=== PATIENT | male | born 1945 | race African-American/Black ===

== ENCOUNTER 2021-05-25 10:47 | Inpatient (IN) | payer MEDICARE ==
[2021-05-25 11:59] LABS: #Monocytes 1.2 10x3/uL (0.0-1.1); #Neutrophils 7.1 10x3/uL (1.5-8.4); %Basophils 0.3 % (0.0-2.0); %Monocytes 13.2 % (0.0-10.0); %Neutrophils 78.9 % (40.0-75.0); Hemoglobin 9.3 g/dL (13.5-17.5); Mean Corpuscular HGB CONC 33.7 g/dL (32.0-36.0); Mean Corpuscular Hemoglobin 29.8 pg (27.0-33.0); Mean Corpuscular Volume 88.5 fl (81.2-95.1); Mean Platelet Volume 9.6 fl (7.4-10.4); Platelet Count 225 10x3/uL (150-450); RBC Distribution Width 14.7 % (11.5-14.5); Red Blood Cell (RBC) Count 3.12 10x6/uL (4.32-5.72)
[2021-05-25 12:28] LABS: ALT (SGPT) 509 U/L (8-55); AST (SGOT) 648 U/L (5-34); Albumin 4.1 g/dL (3.4-4.8); Alkaline Phosphatase 143 U/L (40-110); Anion Gap 23 mmol/L (10-20); BUN (Urea Nitrogen) 63 mg/dL (8.4-25.7); Bilirubin, Total 2.1 mg/dL (0.2-1.2); Calc. Creatinine Clearance 0 mL/min (70-130); Calcium 9.1 mg/dL (7.8-10.44); Carbon Dioxide 20 mmol/L (23-31); Chloride 97 mmol/L (98-107); Globulin 2.9 g/dL (2.4-3.5); Glucose 232 mg/dL (83-110); Potassium 4.9 mmol/L (3.5-5.1); Sodium 135 mmol/L (136-145)
[2021-05-25] MEDS ORDERED: Heparin 10,000 UNITS/ 10 ML VIAL SLOW IVP PRN (12:50)
[2021-05-25 12:54] LABS: CKMB 3.2 ng/mL (0-6.6)
[2021-05-25] MEDS ORDERED: Aspirin 81 mg Enteric Coated Tablet PO SCH (14:00)
[2021-05-25 14:41] LABS: Hep B Surf Ag Non-Reactive S/CO (NonReactive)
[2021-05-25 18:23] LABS: Troponin I 1.768 ng/mL (< 0.028)
[2021-05-25 19:28] VITALS: BMI 28.2
[2021-05-25] MEDS ORDERED: ALPRAZolam 0.5 MG TAB PO PRN (19:52)
[2021-05-25] MEDS ORDERED: HYDROcodone/Acetaminophen 10/325 mg Tablet PO PRN (19:52)
[2021-05-25] MEDS ORDERED: Dextrose 5% in Water 1,000 ML IV PRN (19:54)
[2021-05-25] MEDS ORDERED: Dextrose 50% Abboject 50 ML SYRINGE SLOW IVP PRN (19:54)
[2021-05-25] MEDS ORDERED: HumaLOG 300 UNITS/3 ML VIAL SC PRN (19:54)
[2021-05-25 20:54] LABS: SARS-CoV-2 NAA Rapid Test Not Detected (NotDetected)
[2021-05-25] MEDS: NIFEdipine XL 60 MG TAB PO SCH (21:19)
[2021-05-25] MEDS: Heparin 5,000 UNITS/ML VIAL SC SCH (21:19)
[2021-05-25] MEDS: Montelukast Sodium 10 mg Tablet PO SCH (21:19)
[2021-05-26 02:20] LABS: Hep C IgG Ab Non-Reactive (NonReactive); Hep C Index 0.08 S/CO (0-0.79)
[2021-05-26 02:21] LABS: HBSAB Concentration Less than 8.00 mIU/mL; Hep B Surf AB Non-Reactive (NonReactive)
[2021-05-26 03:09] LABS: Hep B Core Total Ab Non-Reactive (NonReactive); Hep B Core Total Index 0.08 S/CO (0-0.79)
[2021-05-26 04:19] LABS: Hemoglobin 9.5 g/dL (13.5-17.5); Mean Corpuscular HGB CONC 33.6 g/dL (32.0-36.0); Mean Corpuscular Hemoglobin 29.5 pg (27.0-33.0); Mean Corpuscular Volume 87.9 fl (81.2-95.1); Mean Platelet Volume 9.9 fl (7.4-10.4); Platelet Count 262 10x3/uL (150-450); RBC Distribution Width 14.5 % (11.5-14.5); Red Blood Cell (RBC) Count 3.22 10x6/uL (4.32-5.72); White Blood Cell (WBC) Count 9.8 10x3/uL (3.5-10.5)
[2021-05-26 04:38] LABS: Anion Gap 17 mmol/L (10-20); BUN (Urea Nitrogen) 52 mg/dL (8.4-25.7); Calc. Creatinine Clearance 10 mL/min (70-130); Calcium 9.5 mg/dL (7.8-10.44); Carbon Dioxide 26 mmol/L (23-31); Chloride 99 mmol/L (98-107); Glucose 156 mg/dL (83-110); Potassium 4.4 mmol/L (3.5-5.1); Sodium 138 mmol/L (136-145)
[2021-05-26 05:24] LABS: MDiff Complete? YES
[2021-05-26 05:27] LABS: Band 2 % (5-11); Eosinophils 2 % (0-10); Lymphocytes 11 % (21-51); Monocytes 16 % (0-10); Neutrophil 65 % (42-75); Reactive Lymphocytes 3 % (0-10)
[2021-05-26 05:28] LABS: Platelet Morphology Comment Appears Adequate; RBC Morphology Normal
[2021-05-26] MEDS: Aspirin 81 mg Enteric Coated Tablet PO SCH (08:25)
[2021-05-26] MEDS: Alogliptin 6.25 MG TAB PO SCH (08:25)
[2021-05-26] MEDS: glipiZIDE 10 MG TAB PO SCH ×2 (08:25→18:17)
[2021-05-26] MEDS: Allopurinol 300 MG TAB PO SCH (09:16)
[2021-05-26] MEDS: Furosemide 20 MG TAB PO SCH (17:37)
[2021-05-26] MEDS: Atenolol 25 MG TAB PO SCH ×2 (17:37→18:15)
[2021-05-26] MEDS: Heparin 5,000 UNITS/ML VIAL SC SCH ×2 (17:38→20:31)
[2021-05-26] MEDS: Lisinopril 5 MG TAB PO SCH ×2 (17:39→18:16)
[2021-05-26] MEDS: NIFEdipine XL 60 MG TAB PO SCH (17:51)
[2021-05-26] MEDS: Atorvastatin Calcium 40 MG TAB PO SCH (18:16)
[2021-05-26] MEDS: Montelukast Sodium 10 mg Tablet PO SCH (20:27)
[2021-05-27 04:16] LABS: #Basophils 0.1 10x3/uL (0.0-0.2); #Eosinphils 0.2 10x3/uL (0.0-0.5); #Monocytes 1.2 10x3/uL (0.0-1.1); #Neutrophils 5.1 10x3/uL (1.5-8.4); %Basophils 1.3 % (0.0-2.0); %Eosinophils 2.6 % (0.0-6.0); %Lymphocytes 17.3 % (18.0-47.0); %Monocytes 14.5 % (0.0-10.0); Hemoglobin 9.8 g/dL (13.5-17.5); Mean Corpuscular HGB CONC 33.4 g/dL (32.0-36.0); Mean Corpuscular Hemoglobin 29.3 pg (27.0-33.0); Mean Corpuscular Volume 87.5 fl (81.2-95.1); Mean Platelet Volume 9.8 fl (7.4-10.4); Platelet Count 311 10x3/uL (150-450); RBC Distribution Width 14.2 % (11.5-14.5); Red Blood Cell (RBC) Count 3.35 10x6/uL (4.32-5.72); White Blood Cell (WBC) Count 7.9 10x3/uL (3.5-10.5)
[2021-05-27 04:30] LABS: Anion Gap 16 mmol/L (10-20); BUN (Urea Nitrogen) 44 mg/dL (8.4-25.7); Calc. Creatinine Clearance 12 mL/min (70-130); Carbon Dioxide 28 mmol/L (23-31); Chloride 94 mmol/L (98-107); Glucose 128 mg/dL (83-110); Potassium 4.1 mmol/L (3.5-5.1); Sodium 134 mmol/L (136-145)
[2021-05-27] MEDS: Atorvastatin Calcium 40 MG TAB PO SCH (08:43)
[2021-05-27] MEDS: Allopurinol 300 MG TAB PO SCH (08:43)
[2021-05-27] MEDS: Aspirin 81 mg Enteric Coated Tablet PO SCH (08:43)
[2021-05-27] MEDS: Alogliptin 6.25 MG TAB PO SCH (08:43)
[2021-05-27] MEDS: Furosemide 20 MG TAB PO SCH (08:43)
[2021-05-27] MEDS: Lisinopril 5 MG TAB PO SCH (08:43)
[2021-05-27] MEDS: Atenolol 25 MG TAB PO SCH (08:44)
[2021-05-27] MEDS: Heparin 5,000 UNITS/ML VIAL SC SCH (08:44)
[2021-05-27 10:00] LABS: Troponin I 1.277 ng/mL (< 0.028)
[2021-05-27] MEDS: glipiZIDE 10 MG TAB PO SCH (11:04)
[2021-05-27 11:45] VITALS: TEMP 98.4
[2021-05-27 12:53] VITALS: BP 139/75
== END 2021-05-27 14:15 | disposition home or self-care (01) | DRG 280 ==
LOC: CSHERS 10:47 → CSHTELE 18:57
PROVIDERS: ADMIT Internal Medicine; ATTEND Internal Medicine
PROC: 5A1D70Z Performance of Urinary Filtration, Intermittent, Less than 6 Hours Per Day (ICD-10-PCS; principal; 2021-05-25)
DX: T82.590A Other mechanical complication of surgically created arteriovenous fistula, initial encounter (principal); N18.6 End stage renal disease; I21.A1 Myocardial infarction type 2; I13.2 Hypertensive heart and chronic kidney disease with heart failure and with stage 5 chronic kidney disease, or end stage renal disease; I50.32 Chronic diastolic (congestive) heart failure; D63.1 Anemia in chronic kidney disease; Z20.822 Contact with and (suspected) exposure to COVID-19; Y83.8 Other surgical procedures as the cause of abnormal reaction of the patient, or of later complication, without mention of misadventure at the time of the procedure; I95.3 Hypotension of hemodialysis; R79.89 Other specified abnormal findings of blood chemistry; E11.22 Type 2 diabetes mellitus with diabetic chronic kidney disease; E78.5 Hyperlipidemia, unspecified; I25.10 Atherosclerotic heart disease of native coronary artery without angina pectoris; E78.00 Pure hypercholesterolemia, unspecified; Z99.2 Dependence on renal dialysis; Z91.15 Patient's noncompliance with renal dialysis; Z79.82 Long term (current) use of aspirin; Z79.899 Other long term (current) drug therapy; Z79.891 Long term (current) use of opiate analgesic; Z88.8 Allergy status to other drugs, medicaments and biological substances; Z95.1 Presence of aortocoronary bypass graft; Z79.84 Long term (current) use of oral hypoglycemic drugs
CPT/HCPCS: 36415; 36416; 71045; 80048; 80053; 82553; 84484; 85025; 86704; 86706; 86803; 87340; 90935; 93005; 93306; 94760; G0257; J1644; U0002

== ENCOUNTER 2022-04-03 22:55 | Observation (INO) | payer MEDICARE, OTHER ==
[2022-04-03] MEDS ORDERED: Nitroglycerin 2% Ointment 1 INCH/1 GM Packet ONE (23:50)
[2022-04-03] MEDS ORDERED: Aspirin Chewable 81 MG TAB ONE ×2 (23:50→23:55)
[2022-04-04 00:17] LABS: #Basophils 0.1 10x3/uL (0.0-0.2); #Eosinphils 0.2 10x3/uL (0.0-0.5); #Monocytes 0.8 10x3/uL (0.0-1.1); #Neutrophils 5.1 10x3/uL (1.5-8.4); %Basophils 0.8 % (0.0-2.0); %Eosinophils 2.4 % (0.0-6.0); %Lymphocytes 17.9 % (18.0-47.0); %Monocytes 10.2 % (0.0-10.0); %Neutrophils 68.3 % (40.0-75.0); Hemoglobin 10.4 g/dL (13.5-17.5); Mean Corpuscular HGB CONC 34.7 g/dL (32.0-36.0); Mean Corpuscular Hemoglobin 31.2 pg (27.0-33.0); Mean Corpuscular Volume 90.1 fl (81.2-95.1); Mean Platelet Volume 8.9 fl (7.4-10.4); Platelet Count 249 10x3/uL (150-450); RBC Distribution Width 13.5 % (11.5-14.5); Red Blood Cell (RBC) Count 3.33 10x6/uL (4.32-5.72); White Blood Cell (WBC) Count 7.5 10x3/uL (3.5-10.5)
[2022-04-04 00:37] LABS: ALT (SGPT) 13 U/L (8-55); AST (SGOT) 13 U/L (5-34); Albumin 4.2 g/dL (3.4-4.8); Alkaline Phosphatase 90 U/L (40-110); Anion Gap 26 mmol/L (10-20); BUN (Urea Nitrogen) 78 mg/dL (8.4-25.7); Bilirubin, Total 0.3 mg/dL (0.2-1.2); Calc. Creatinine Clearance 0 mL/min (70-130); Calcium 8.7 mg/dL (7.8-10.44); Carbon Dioxide 20 mmol/L (23-31); Chloride 96 mmol/L (98-107); Estimated GFR 3; Globulin 2.4 g/dL (2.4-3.5); Glucose 213 mg/dL (83-110); Lipase 61 U/L (8-78); Potassium 4.7 mmol/L (3.5-5.1); Protein, Total 6.6 g/dL (5.8-8.1); Sodium 137 mmol/L (136-145)
[2022-04-04 01:00] LABS: CKMB 3.1 ng/mL (0-6.6)
[2022-04-04] MEDS ORDERED: HYDROcodone/Acetaminophen 5/325 mg Tablet PO PRN (01:36)
[2022-04-04] MEDS ORDERED: Acetaminophen 325 MG TAB PO PRN (01:36)
[2022-04-04] MEDS ORDERED: Senokot S 8.6-50 MG TAB PO PRN (01:36)
[2022-04-04] MEDS ORDERED: Ondansetron PF 4 MG/2 ML Vial IVP PRN (01:36)
[2022-04-04] MEDS ORDERED: Calcium Carbonate 500 MG ChewTAB PO PRN (01:36)
[2022-04-04] MEDS ORDERED: Guaifenesin DM 100-10/5 ML UDCUP PO PRN (01:36)
[2022-04-04] MEDS ORDERED: ALPRAZolam 0.5 MG TAB PO PRN (01:39)
[2022-04-04] MEDS ORDERED: Nitroglycerin 0.4 MG TAB (25 Tab Bottle) SL PRN (01:39)
[2022-04-04 05:23] LABS: CKMB 4.7 ng/mL (0-6.6)
[2022-04-04] MEDS ORDERED: glipiZIDE 10 MG TAB PO SCH (08:00)
[2022-04-04] MEDS ORDERED: Ferrous Sulfate 325 MG TAB PO SCH (08:00)
[2022-04-04 09:00] LABS: CKMB 5.7 ng/mL (0-6.6)
[2022-04-04] MEDS ORDERED: Alogliptin 6.25 MG TAB PO SCH (09:00)
[2022-04-04] MEDS ORDERED: Allopurinol 300 MG TAB PO SCH (09:00)
[2022-04-04] MEDS ORDERED: Famotidine 20 MG TAB PO SCH (09:00)
[2022-04-04] MEDS ORDERED: Heparin 5,000 UNITS/ML VIAL SC SCH (09:00)
[2022-04-04] MEDS ORDERED: Cholecalciferol 1,000 UNITS (25 MCG) TAB PO SCH (09:00)
[2022-04-04] MEDS ORDERED: Atorvastatin Calcium 40 MG TAB PO SCH (09:00)
[2022-04-04] MEDS ORDERED: NIFEdipine XL 30 MG TAB PO SCH (09:00)
[2022-04-04] MEDS ORDERED: Aspirin 81 mg Enteric Coated Tablet PO SCH (09:00)
[2022-04-04] MEDS ORDERED: Atenolol 50 MG TAB PO SCH (09:00)
[2022-04-04] MEDS ORDERED: Atorvastatin Calcium 40 MG TAB ONE (09:17)
[2022-04-04] MEDS ORDERED: Famotidine 20 MG TAB ONE (09:19)
[2022-04-04] MEDS ORDERED: Heparin 5,000 UNITS/ML VIAL ONE (09:21)
[2022-04-04 11:29] VITALS: BP 131/71
[2022-04-04] MEDS ORDERED: Montelukast Sodium 10 mg Tablet PO SCH (21:00)
== END 2022-04-04 14:57 | disposition home or self-care (01) ==
LOC: CSHERS 22:55 → INTOOBSV 04-04 01:36 → CSHERHOLD 04-04 01:36 → UNDOADMIN 04-04 04:13
PROVIDERS: ADMIT Student in an Organized Health Care Education/Training Program; ATTEND Family Medicine
DX: R07.9 Chest pain, unspecified (principal); I25.10 Atherosclerotic heart disease of native coronary artery without angina pectoris; I12.9 Hypertensive chronic kidney disease with stage 1 through stage 4 chronic kidney disease, or unspecified chronic kidney disease; E11.22 Type 2 diabetes mellitus with diabetic chronic kidney disease; N18.6 End stage renal disease; D63.1 Anemia in chronic kidney disease; E78.5 Hyperlipidemia, unspecified; M10.9 Gout, unspecified; R77.8 Other specified abnormalities of plasma proteins; Z79.82 Long term (current) use of aspirin; Z79.899 Other long term (current) drug therapy; Z88.5 Allergy status to narcotic agent; Z95.1 Presence of aortocoronary bypass graft; Z98.890 Other specified postprocedural states
CPT/HCPCS: 71045; 80053; 82553; 83690; 83880; 84484 ×2; 85025; 93005; 99285; G0378; 36415; J1644

== ENCOUNTER 2022-05-08 22:19 | Observation (INO) | payer MEDICARE ==
[2022-05-08] MEDS ORDERED: Aspirin Chewable 81 MG TAB ONE (22:54)
[2022-05-08] MEDS ORDERED: Nitroglycerin 0.4 MG TAB 1 EACH ONE (22:54)
[2022-05-08 23:00] LABS: #Basophils 0.1 10x3/uL (0.0-0.2); #Eosinphils 0.2 10x3/uL (0.0-0.5); #Monocytes 0.9 10x3/uL (0.0-1.1); #Neutrophils 5.5 10x3/uL (1.5-8.4); %Basophils 0.7 % (0.0-2.0); %Eosinophils 1.8 % (0.0-6.0); %Lymphocytes 22.1 % (18.0-47.0); %Monocytes 10.3 % (0.0-10.0); %Neutrophils 64.9 % (40.0-75.0); Hemoglobin 10.1 g/dL (13.5-17.5); Mean Corpuscular HGB CONC 33.8 g/dL (32.0-36.0); Mean Corpuscular Hemoglobin 30.9 pg (27.0-33.0); Mean Corpuscular Volume 91.4 fl (81.2-95.1); Mean Platelet Volume 9.3 fl (7.4-10.4); Platelet Count 271 10x3/uL (150-450); RBC Distribution Width 13.9 % (11.5-14.5); Red Blood Cell (RBC) Count 3.27 10x6/uL (4.32-5.72); White Blood Cell (WBC) Count 8.4 10x3/uL (3.5-10.5)
[2022-05-08 23:13] LABS: ALT (SGPT) 15 U/L (8-55); AST (SGOT) 19 U/L (5-34); Albumin 4.4 g/dL (3.4-4.8); Alkaline Phosphatase 83 U/L (40-110); Anion Gap 22 mmol/L (10-20); BUN (Urea Nitrogen) 63 mg/dL (8.4-25.7); Bilirubin, Total 0.4 mg/dL (0.2-1.2); Calc. Creatinine Clearance 0 mL/min (70-130); Calcium 9.5 mg/dL (7.8-10.44); Carbon Dioxide 24 mmol/L (23-31); Chloride 96 mmol/L (98-107); Estimated GFR 3; Globulin 2.9 g/dL (2.4-3.5); Glucose 179 mg/dL (83-110); Lipase 48 U/L (8-78); Potassium 4.2 mmol/L (3.5-5.1); Protein, Total 7.3 g/dL (5.8-8.1); Sodium 138 mmol/L (136-145)
[2022-05-08 23:35] LABS: CKMB 1.7 ng/mL (0-6.6)
[2022-05-09 01:15] LABS: SARS-CoV-2 NAA Rapid Test Not Detected (NotDetected)
[2022-05-09] MEDS ORDERED: ALPRAZolam 0.5 MG TAB PO PRN (01:41)
[2022-05-09] MEDS ORDERED: Nitroglycerin 0.4 MG TAB (25 Tab Bottle) SL PRN (01:41)
[2022-05-09 02:49] LABS: Cardiac Risk 3.4 (Less than 4.5)
[2022-05-09 03:04] LABS: CKMB 1.8 ng/mL (0-6.6)
[2022-05-09 05:11] LABS: #Basophils 0.1 10x3/uL (0.0-0.2); #Eosinphils 0.2 10x3/uL (0.0-0.5); #Monocytes 0.8 10x3/uL (0.0-1.1); #Neutrophils 4.3 10x3/uL (1.5-8.4); %Basophils 0.8 % (0.0-2.0); %Lymphocytes 27.1 % (18.0-47.0); %Monocytes 11.3 % (0.0-10.0); %Neutrophils 58.5 % (40.0-75.0); Hemoglobin 9.2 g/dL (13.5-17.5); Mean Corpuscular HGB CONC 34.3 g/dL (32.0-36.0); Mean Corpuscular Hemoglobin 31.5 pg (27.0-33.0); Mean Corpuscular Volume 91.8 fl (81.2-95.1); Mean Platelet Volume 8.9 fl (7.4-10.4); Platelet Count 264 10x3/uL (150-450); Red Blood Cell (RBC) Count 2.92 10x6/uL (4.32-5.72); White Blood Cell (WBC) Count 7.4 10x3/uL (3.5-10.5)
[2022-05-09 05:21] LABS: Anion Gap 18 mmol/L (10-20); BUN (Urea Nitrogen) 64 mg/dL (8.4-25.7); Calc. Creatinine Clearance 0 mL/min (70-130); Carbon Dioxide 25 mmol/L (23-31); Chloride 99 mmol/L (98-107); Estimated GFR 3; Glucose 106 mg/dL (83-110); Magnesium 2.3 mg/dL (1.6-2.6); Potassium 3.9 mmol/L (3.5-5.1); Sodium 138 mmol/L (136-145)
[2022-05-09] MEDS ORDERED: Aspirin Chewable 81 MG TAB ONE ×2 (07:10→07:11)
[2022-05-09] MEDS ORDERED: Heparin 5,000 UNITS/ML VIAL ONE (07:11)
[2022-05-09] MEDS ORDERED: Atorvastatin Calcium 40 MG TAB ONE (07:13)
[2022-05-09] MEDS ORDERED: NIFEdipine XL 30 MG TAB ONE (07:13)
[2022-05-09] MEDS: Lanthanum Carbonate 500 mg Chewable Tablet PO SCH ×4 (07:49→22:36)
[2022-05-09] MEDS: glipiZIDE 10 MG TAB PO SCH ×2 (07:49→22:13)
[2022-05-09] MEDS: Allopurinol 300 MG TAB PO SCH (07:49)
[2022-05-09] MEDS: Atenolol 25 MG TAB PO SCH (07:49)
[2022-05-09] MEDS: Aspirin 81 mg Enteric Coated Tablet PO SCH (07:49)
[2022-05-09] MEDS: Heparin 5,000 UNITS/ML VIAL SC SCH ×3 (07:50→22:14)
[2022-05-09] MEDS: Atorvastatin Calcium 40 MG TAB PO SCH (07:50)
[2022-05-09] MEDS: NIFEdipine XL 30 MG TAB PO SCH (07:50)
[2022-05-09] MEDS ORDERED: Dextrose 5% in Water 1,000 ML IV PRN (10:21)
[2022-05-09] MEDS ORDERED: Dextrose 50% Abboject 50 ML SYRINGE SLOW IVP PRN (10:21)
[2022-05-09] MEDS ORDERED: HumaLOG 300 UNITS/3 ML VIAL SC PRN ×2 (10:21)
[2022-05-09 12:28] LABS: HBSAg Index 0.14 S/CO (0-0.99); Hep B Surf Ag Non-Reactive S/CO (NonReactive)
[2022-05-09] MEDS ORDERED: Heparin 10,000 UNITS/ 10 ML VIAL SLOW IVP PRN (15:24)
[2022-05-09 16:19] VITALS: BMI 27.7
[2022-05-09] MEDS ORDERED: Montelukast Sodium 10 mg Tablet PO SCH (21:00)
[2022-05-09 23:31] LABS: Hep B Core Total Ab Non-Reactive (NonReactive); Hep B Core Total Index 0.07 S/CO (0-0.79); Hep C IgG Ab Non-Reactive (NonReactive); Hep C Index 0.05 S/CO (0-0.79)
[2022-05-09 23:53] LABS: HBSAB Concentration 331.99 mIU/mL; Hep B Surf AB Reactive (NonReactive)
[2022-05-10 05:34] LABS: #Basophils 0.1 10x3/uL (0.0-0.2); #Eosinphils 0.2 10x3/uL (0.0-0.5); #Monocytes 0.7 10x3/uL (0.0-1.1); #Neutrophils 3.4 10x3/uL (1.5-8.4); %Basophils 1.2 % (0.0-2.0); %Eosinophils 3.1 % (0.0-6.0); %Lymphocytes 23.9 % (18.0-47.0); %Monocytes 12.6 % (0.0-10.0); %Neutrophils 58.9 % (40.0-75.0); Hemoglobin 10.2 g/dL (13.5-17.5); Mean Corpuscular HGB CONC 34.3 g/dL (32.0-36.0); Mean Corpuscular Hemoglobin 31.3 pg (27.0-33.0); Mean Corpuscular Volume 91.1 fl (81.2-95.1); Mean Platelet Volume 8.9 fl (7.4-10.4); Platelet Count 261 10x3/uL (150-450); Red Blood Cell (RBC) Count 3.26 10x6/uL (4.32-5.72); White Blood Cell (WBC) Count 5.7 10x3/uL (3.5-10.5)
[2022-05-10 05:38] LABS: Anion Gap 16 mmol/L (10-20); BUN (Urea Nitrogen) 37 mg/dL (8.4-25.7); Calc. Creatinine Clearance 8 mL/min (70-130); Calcium 8.9 mg/dL (7.8-10.44); Carbon Dioxide 26 mmol/L (23-31); Chloride 100 mmol/L (98-107); Estimated GFR 5; Glucose 138 mg/dL (83-110); Potassium 3.9 mmol/L (3.5-5.1); Sodium 138 mmol/L (136-145)
[2022-05-10] MEDS: Heparin 5,000 UNITS/ML VIAL SC SCH (07:59)
[2022-05-10] MEDS: Atenolol 25 MG TAB PO SCH (07:59)
[2022-05-10] MEDS: Atorvastatin Calcium 40 MG TAB PO SCH (08:00)
[2022-05-10] MEDS: NIFEdipine XL 30 MG TAB PO SCH (08:00)
[2022-05-10] MEDS: Lanthanum Carbonate 500 mg Chewable Tablet PO SCH ×2 (08:00→11:17)
[2022-05-10] MEDS: Aspirin 81 mg Enteric Coated Tablet PO SCH (08:00)
[2022-05-10] MEDS: Allopurinol 300 MG TAB PO SCH (08:00)
[2022-05-10] MEDS: glipiZIDE 10 MG TAB PO SCH (08:00)
[2022-05-10 11:35] VITALS: BP 130/60; TEMP 98.1
== END 2022-05-10 12:18 | disposition home or self-care (01) ==
LOC: CSHERS 22:19 → CSHERHOLD 05-09 00:25 → INTOOBSV 05-09 00:25 → CSHTELE 05-09 14:44
PROVIDERS: ADMIT Family Medicine; ATTEND Internal Medicine
DX: R07.2 Precordial pain (principal); I25.119 Atherosclerotic heart disease of native coronary artery with unspecified angina pectoris; I13.2 Hypertensive heart and chronic kidney disease with heart failure and with stage 5 chronic kidney disease, or end stage renal disease; I50.33 Acute on chronic diastolic (congestive) heart failure; E11.22 Type 2 diabetes mellitus with diabetic chronic kidney disease; N18.6 End stage renal disease; D63.1 Anemia in chronic kidney disease; E78.5 Hyperlipidemia, unspecified; Z20.822 Contact with and (suspected) exposure to COVID-19; R77.8 Other specified abnormalities of plasma proteins; Z95.1 Presence of aortocoronary bypass graft; I65.29 Occlusion and stenosis of unspecified carotid artery; Z99.2 Dependence on renal dialysis; Z79.82 Long term (current) use of aspirin; Z79.899 Other long term (current) drug therapy; Z88.8 Allergy status to other drugs, medicaments and biological substances; Z79.84 Long term (current) use of oral hypoglycemic drugs
CPT/HCPCS: 71045; 80048 ×2; 80053; 80061; 82553; 82962 ×2; 83690; 83735; 83880; 84484 ×2; 85025 ×2; 86704; 93005 ×2; 93306; 93880; 99285; G0378 ×3; U0002; 36415; 36416; 90935; 93010; G0257; J1644

== ENCOUNTER 2022-07-17 23:05 | Inpatient (IN) | payer MEDICARE ==
[2022-07-18 00:28] LABS: #Basophils 0.1 10x3/uL (0.0-0.2); #Eosinphils 0.2 10x3/uL (0.0-0.5); #Monocytes 0.7 10x3/uL (0.0-1.1); #Neutrophils 4.8 10x3/uL (1.5-8.4); %Basophils 0.8 % (0.0-2.0); %Eosinophils 2.4 % (0.0-6.0); %Lymphocytes 18.5 % (18.0-47.0); %Monocytes 9.9 % (0.0-10.0); Hemoglobin 10.5 g/dL (13.5-17.5); Mean Corpuscular HGB CONC 33.4 g/dL (32.0-36.0); Mean Corpuscular Hemoglobin 31.3 pg (27.0-33.0); Mean Corpuscular Volume 93.5 fl (81.2-95.1); Mean Platelet Volume 9.5 fl (7.4-10.4); Platelet Count 245 10x3/uL (150-450); RBC Distribution Width 14.1 % (11.5-14.5); Red Blood Cell (RBC) Count 3.36 10x6/uL (4.32-5.72); White Blood Cell (WBC) Count 7.1 10x3/uL (3.5-10.5)
[2022-07-18 00:42] LABS: ALT (SGPT) 15 U/L (8-55); AST (SGOT) 20 U/L (5-34); Albumin 4.5 g/dL (3.4-4.8); Alkaline Phosphatase 100 U/L (40-110); Anion Gap 22 mmol/L (10-20); BUN (Urea Nitrogen) 59 mg/dL (8.4-25.7); Bilirubin, Total 0.4 mg/dL (0.2-1.2); Calc. Creatinine Clearance 0 mL/min (70-130); Calcium 9.8 mg/dL (7.8-10.44); Carbon Dioxide 25 mmol/L (23-31); Chloride 94 mmol/L (98-107); Estimated GFR 3; Globulin 2.8 g/dL (2.4-3.5); Glucose 154 mg/dL (83-110); Lipase 50 U/L (8-78); Potassium 4.3 mmol/L (3.5-5.1); Protein, Total 7.3 g/dL (5.8-8.1); Sodium 137 mmol/L (136-145)
[2022-07-18] MEDS ORDERED: Aspirin Chewable 81 MG TAB ONE (01:00)
[2022-07-18 01:09] LABS: CKMB 3.3 ng/mL (0-6.6)
[2022-07-18] MEDS ORDERED: Nitroglycerin 2% Ointment 1 INCH/1 GM Packet ONE (01:38)
[2022-07-18] MEDS ORDERED: Nitroglycerin 0.4 MG TAB (25 Tab Bottle) SL PRN (01:44)
[2022-07-18] MEDS ORDERED: Ondansetron PF 4 MG/2 ML Vial IVP PRN (01:49)
[2022-07-18] MEDS ORDERED: Acetaminophen 325 MG TAB PO PRN (01:49)
[2022-07-18] MEDS ORDERED: Heparin 10,000 UNITS/ 10 ML VIAL SLOW IVP SCH (02:00)
[2022-07-18 03:43] LABS: #Basophils 0.1 10x3/uL (0.0-0.2); #Eosinphils 0.2 10x3/uL (0.0-0.5); #Monocytes 0.8 10x3/uL (0.0-1.1); #Neutrophils 6.2 10x3/uL (1.5-8.4); %Basophils 0.7 % (0.0-2.0); %Lymphocytes 17.4 % (18.0-47.0); %Monocytes 9.3 % (0.0-10.0); %Neutrophils 70.2 % (40.0-75.0); Hemoglobin 10.4 g/dL (13.5-17.5); Mean Corpuscular HGB CONC 33.3 g/dL (32.0-36.0); Mean Corpuscular Hemoglobin 31.2 pg (27.0-33.0); Mean Corpuscular Volume 93.7 fl (81.2-95.1); Mean Platelet Volume 9.4 fl (7.4-10.4); Platelet Count 261 10x3/uL (150-450); RBC Distribution Width 14.1 % (11.5-14.5); Red Blood Cell (RBC) Count 3.33 10x6/uL (4.32-5.72); White Blood Cell (WBC) Count 8.9 10x3/uL (3.5-10.5)
[2022-07-18 03:56] LABS: Anion Gap 23 mmol/L (10-20); BUN (Urea Nitrogen) 61 mg/dL (8.4-25.7); Calc. Creatinine Clearance 0 mL/min (70-130); Calcium 9.8 mg/dL (7.8-10.44); Carbon Dioxide 24 mmol/L (23-31); Chloride 95 mmol/L (98-107); Estimated GFR 3; Glucose 163 mg/dL (83-110); Potassium 4.5 mmol/L (3.5-5.1); Sodium 137 mmol/L (136-145)
[2022-07-18 04:12] LABS: Troponin I 0.691 ng/mL (< 0.028)
[2022-07-18] MEDS ORDERED: Dextrose 5% in Water 1,000 ML IV PRN (04:15)
[2022-07-18] MEDS ORDERED: HumaLOG 300 UNITS/3 ML VIAL SC PRN ×2 (04:15)
[2022-07-18] MEDS ORDERED: Dextrose 50% Abboject 50 ML SYRINGE SLOW IVP PRN (04:15)
[2022-07-18] MEDS ORDERED: Heparin 5,000 UNITS/ML VIAL ONE (04:18)
[2022-07-18] MEDS ORDERED: Heparin 25,000 units/D5W 500 ML ONE (04:18)
[2022-07-18 06:51] LABS: Troponin I 0.757 ng/mL (< 0.028)
[2022-07-18] MEDS ORDERED: Clopidogrel Bisulfate 75 MG TAB ONE (08:47)
[2022-07-18] MEDS ORDERED: NIFEdipine XL 30 MG TAB ONE (08:48)
[2022-07-18] MEDS ORDERED: Aspirin Chewable 81 MG TAB PO SCH (09:00)
[2022-07-18] MEDS ORDERED: Carvedilol 6.25 MG TAB PO SCH (09:30)
[2022-07-18] MEDS ORDERED: Carvedilol 3.125 MG TAB ONE (09:42)
[2022-07-18] MEDS: NIFEdipine XL 30 MG TAB PO SCH (09:47)
[2022-07-18] MEDS: Clopidogrel Bisulfate 75 MG TAB PO SCH (09:47)
[2022-07-18] MEDS ORDERED: Communication Order-Pharmacy FS SCH (10:30)
[2022-07-18] MEDS: Heparin 25,000 units/D5W 500 ML IVPB SCH (10:30)
[2022-07-18] MEDS: Heparin 10,000 UNITS/ 10 ML VIAL SLOW IVP SCH ×2 (10:30→15:13)
[2022-07-18 14:54] VITALS: BMI 27.5
[2022-07-18 16:48] LABS: Platelet Count 248 10x3/uL (150-450)
[2022-07-18] MEDS: Carvedilol 6.25 MG TAB PO SCH (17:52)
[2022-07-19] MEDS: Atorvastatin Calcium 40 MG TAB PO SCH ×2 (01:14→20:21)
[2022-07-19] MEDS ORDERED: Aspirin Chewable 81 MG TAB PO SCH (05:15)
[2022-07-19] MEDS: Carvedilol 6.25 MG TAB PO SCH ×2 (05:42→17:07)
[2022-07-19] MEDS: NIFEdipine XL 30 MG TAB PO SCH (05:42)
[2022-07-19] MEDS: Clopidogrel Bisulfate 75 MG TAB PO SCH (05:42)
[2022-07-19 06:07] LABS: #Basophils 0.1 10x3/uL (0.0-0.2); #Eosinphils 0.2 10x3/uL (0.0-0.5); #Monocytes 0.7 10x3/uL (0.0-1.1); #Neutrophils 4.6 10x3/uL (1.5-8.4); %Basophils 0.7 % (0.0-2.0); %Eosinophils 2.3 % (0.0-6.0); %Lymphocytes 23.4 % (18.0-47.0); %Monocytes 9.9 % (0.0-10.0); %Neutrophils 63.4 % (40.0-75.0); Hemoglobin 10.3 g/dL (13.5-17.5); Mean Corpuscular HGB CONC 33.4 g/dL (32.0-36.0); Mean Corpuscular Volume 92.8 fl (81.2-95.1); Mean Platelet Volume 9.2 fl (7.4-10.4); Platelet Count 251 10x3/uL (150-450); RBC Distribution Width 14.1 % (11.5-14.5); Red Blood Cell (RBC) Count 3.32 10x6/uL (4.32-5.72); White Blood Cell (WBC) Count 7.3 10x3/uL (3.5-10.5)
[2022-07-19 06:14] LABS: PTT 64.5 sec (22.0-33.0); Prothrombin Time 10.3 sec (9.5-12.1)
[2022-07-19 06:21] LABS: ALT (SGPT) 15 U/L (8-55); AST (SGOT) 14 U/L (5-34); Albumin 3.9 g/dL (3.4-4.8); Alkaline Phosphatase 103 U/L (40-110); Anion Gap 18 mmol/L (10-20); BUN (Urea Nitrogen) 33 mg/dL (8.4-25.7); Bilirubin, Total 0.4 mg/dL (0.2-1.2); Calc. Creatinine Clearance 8 mL/min (70-130); Calcium 9.7 mg/dL (7.8-10.44); Carbon Dioxide 25 mmol/L (23-31); Chloride 100 mmol/L (98-107); Cholesterol 133 mg/dl (< 200 Desired); Estimated GFR 5; Globulin 2.9 g/dL (2.4-3.5); Glucose 203 mg/dL (83-110); HDL Cholesterol 45 mg/dL (>60 Neg Risk); LDL Cholesterol, Calculated 74 mg/dL; Magnesium 2.1 mg/dL (1.6-2.6); Potassium 4.3 mmol/L (3.5-5.1); Protein, Total 6.8 g/dL (5.8-8.1); Sodium 139 mmol/L (136-145); Triglycerides 72 mg/dL (Less than 150)
[2022-07-19] MEDS: Heparin 25,000 units/D5W 500 ML IVPB SCH (06:46)
[2022-07-19] MEDS ORDERED: Heparin 10,000 UNITS/ 10 ML VIAL ONE ×2 (06:53→07:24)
[2022-07-19] MEDS ORDERED: Lidocaine 1% (PF) 30 ML VIAL ONE ×2 (06:53→08:23)
[2022-07-19] MEDS ORDERED: Adenosine 6 MG/2 ML VIAL ONE (06:55)
[2022-07-19] MEDS ORDERED: Verapamil 5 MG/2 ML VIAL ONE (06:55)
[2022-07-19] MEDS ORDERED: Sodium Chloride 0.9% 1,000 ML ONE (06:55)
[2022-07-19] MEDS ORDERED: Midazolam HCl 2 mg/2 ml Vial ONE ×2 (07:18→09:12)
[2022-07-19] MEDS ORDERED: Fentanyl 100 MCG/2 ML VIAL ONE (07:18)
[2022-07-19] MEDS ORDERED: Ondansetron PF 4 MG/2 ML Vial ONE (09:07)
[2022-07-19] MEDS ORDERED: Protamine Sulfate 50 MG/5 ML VIAL ONE (10:01)
[2022-07-19] MEDS ORDERED: Nitroglycerin 0.4 MG TAB (25 Tab Bottle) SL PRN (10:24)
[2022-07-19] MEDS ORDERED: Acetaminophen/Codeine 30-300mg Tablet PO PRN ×2 (10:24)
[2022-07-19] MEDS ORDERED: Sodium Chloride 0.9% 200 ML IV PRN (10:24)
[2022-07-19 10:33] LABS: Hemoglobin 8.4 g/dL (13.5-17.5)
[2022-07-19] MEDS ORDERED: EPINEPHrine 1 MG/ML AMP ONE (11:00)
[2022-07-19] MEDS ORDERED: Lidocaine 2 gm/D5W 500ML PREMIX BAG ONE (11:00)
[2022-07-19] MEDS ORDERED: Amiodarone 150 MG/3 ML VIAL ONE (11:00)
[2022-07-19] MEDS ORDERED: Iopamidol 300 61% 100 ML VIAL FS ONE (13:55)
[2022-07-20 06:26] LABS: Anion Gap 16 mmol/L (10-20); BUN (Urea Nitrogen) 30 mg/dL (8.4-25.7); Calc. Creatinine Clearance 9 mL/min (70-130); Calcium 8.7 mg/dL (7.8-10.44); Carbon Dioxide 25 mmol/L (23-31); Chloride 99 mmol/L (98-107); Estimated GFR 6; Glucose 109 mg/dL (83-110); Potassium 4.3 mmol/L (3.5-5.1); Sodium 136 mmol/L (136-145)
[2022-07-20 07:21] LABS: #Basophils 0.1 10x3/uL (0.0-0.2); #Eosinphils 0.2 10x3/uL (0.0-0.5); #Monocytes 0.9 10x3/uL (0.0-1.1); #Neutrophils 3.9 10x3/uL (1.5-8.4); %Basophils 0.8 % (0.0-2.0); %Eosinophils 2.4 % (0.0-6.0); %Lymphocytes 20.6 % (18.0-47.0); %Neutrophils 61.9 % (40.0-75.0); Hemoglobin 8.7 g/dL (13.5-17.5); Mean Corpuscular Hemoglobin 30.7 pg (27.0-33.0); Mean Corpuscular Volume 93.3 fl (81.2-95.1); Mean Platelet Volume 9.2 fl (7.4-10.4); Platelet Count 203 10x3/uL (150-450); Red Blood Cell (RBC) Count 2.83 10x6/uL (4.32-5.72); White Blood Cell (WBC) Count 6.4 10x3/uL (3.5-10.5)
[2022-07-20] MEDS: Clopidogrel Bisulfate 75 MG TAB PO SCH (08:11)
[2022-07-20] MEDS: Carvedilol 6.25 MG TAB PO SCH ×2 (08:11→17:15)
[2022-07-20] MEDS: NIFEdipine XL 30 MG TAB PO SCH (08:11)
[2022-07-20] MEDS ORDERED: Aspirin Chewable 81 MG TAB PO SCH (09:00)
[2022-07-20 10:17] VITALS: TEMP 98
[2022-07-20] MEDS ORDERED: Heparin 10,000 UNITS/ 10 ML VIAL SLOW IVP PRN (13:26)
[2022-07-20 17:16] VITALS: BP 116/68
== END 2022-07-20 18:40 | disposition home or self-care (01) | DRG 216 ==
LOC: CSHERS 23:05 → CSHERHOLD 07-18 01:28 → CSHTELE 07-18 14:10 → CSHICU 07-19 10:08
PROVIDERS: ADMIT Internal Medicine; ATTEND Internal Medicine
PROC: 027136Z Dilation of Coronary Artery, Two Arteries with Three Drug-eluting Intraluminal Devices, Percutaneous Approach (ICD-10-PCS; principal; 2022-07-19)
PROC: 02HA3RJ Insertion of Short-term External Heart Assist System into Heart, Intraoperative, Percutaneous Approach (ICD-10-PCS; 2022-07-19)
PROC: 4A023N7 Measurement of Cardiac Sampling and Pressure, Left Heart, Percutaneous Approach (ICD-10-PCS; 2022-07-19)
PROC: 5A0221D Assistance with Cardiac Output using Impeller Pump, Continuous (ICD-10-PCS; 2022-07-19)
PROC: B2111ZZ Fluoroscopy of Multiple Coronary Arteries using Low Osmolar Contrast (ICD-10-PCS; 2022-07-19)
DX: I21.4 Non-ST elevation (NSTEMI) myocardial infarction (principal); I49.01 Ventricular fibrillation; N18.6 End stage renal disease; I12.0 Hypertensive chronic kidney disease with stage 5 chronic kidney disease or end stage renal disease; E11.22 Type 2 diabetes mellitus with diabetic chronic kidney disease; E11.51 Type 2 diabetes mellitus with diabetic peripheral angiopathy without gangrene; I25.110 Atherosclerotic heart disease of native coronary artery with unstable angina pectoris; D63.1 Anemia in chronic kidney disease; E78.5 Hyperlipidemia, unspecified; Z99.2 Dependence on renal dialysis; Z79.82 Long term (current) use of aspirin; Z79.899 Other long term (current) drug therapy; Z95.1 Presence of aortocoronary bypass graft; Z82.49 Family history of ischemic heart disease and other diseases of the circulatory system; Z88.8 Allergy status to other drugs, medicaments and biological substances
CPT/HCPCS: 0715T; 33990; 36415; 36416; 71045; 80048; 80053; 80061; 82553; 83690; 83735; 83880; 84484; 85025; 85347; 85610; 85730; 90935; 92928; 93005; 93010; 93458; 94760; 94762; 99152; 99153; C1725; C1760; C1761; C1769; C1874; C1887; C9600; G0257; G0278; J0153; J0171; J0282; J0283; J1644; J1815; J2001; J2250; J2405; J2720; J3010; J7050

== ENCOUNTER 2023-04-27 12:52 | Inpatient (IN) | payer OTHER ==
[2023-04-27] MEDS ORDERED: Amiodarone 150 MG/3 ML VIAL ONE (13:53)
[2023-04-27] MEDS ORDERED: Amiodarone In Dextrose 200 ML ONE (13:54)
[2023-04-27 14:11] LABS: #Basophils 0.1 10x3/uL (0.0-0.2); #Eosinphils 0.1 10x3/uL (0.0-0.5); #Neutrophils 6.6 10x3/uL (1.5-8.4); %Basophils 0.7 % (0.0-2.0); %Eosinophils 0.8 % (0.0-6.0); %Lymphocytes 12.9 % (18.0-47.0); %Monocytes 10.7 % (0.0-10.0); %Neutrophils 74.4 % (40.0-75.0); Hematocrit 27.4 % (38.8-50.0); Hemoglobin 9.1 g/dL (13.5-17.5); Mean Corpuscular HGB CONC 33.2 g/dL (32.0-36.0); Mean Corpuscular Hemoglobin 31.1 pg (27.0-33.0); Mean Corpuscular Volume 93.5 fl (81.2-95.1); Mean Platelet Volume 9.1 fl (7.4-10.4); Platelet Count 290 10x3/uL (150-450); RBC Distribution Width 15.8 % (11.5-14.5); Red Blood Cell (RBC) Count 2.93 10x6/uL (4.32-5.72); White Blood Cell (WBC) Count 8.9 10x3/uL (3.5-10.5)
[2023-04-27 14:21] LABS: ALT (SGPT) 9 U/L (8-55); AST (SGOT) 24 U/L (5-34); Albumin 4.1 g/dL (3.4-4.8); Alkaline Phosphatase 102 U/L (40-110); Anion Gap 19 mmol/L (10-20); BUN (Urea Nitrogen) 21 mg/dL (8.4-25.7); Bilirubin, Total 0.3 mg/dL (0.2-1.2); Calc. Creatinine Clearance 0 mL/min (70-130); Calcium 9.1 mg/dL (7.8-10.44); Carbon Dioxide 27 mmol/L (23-31); Chloride 97 mmol/L (98-107); Estimated GFR 11; Globulin 2.7 g/dL (2.4-3.5); Glucose 152 mg/dL (83-110); Magnesium 2.1 mg/dL (1.6-2.6); Potassium 3.8 mmol/L (3.5-5.1); Protein, Total 6.8 g/dL (5.8-8.1); Sodium 139 mmol/L (136-145)
[2023-04-27 14:27] LABS: Troponin I 0.088 ng/mL (< 0.028)
[2023-04-27 16:38] VITALS: BMI 27.0
[2023-04-27] MEDS ORDERED: Nitroglycerin 0.4 MG TAB (25 Tab Bottle) SL PRN (17:44)
[2023-04-27] MEDS ORDERED: Bisacodyl 5 MG TAB PO PRN ×2 (17:44→17:54)
[2023-04-27 17:58] LABS: Troponin I 0.184 ng/mL (< 0.028)
[2023-04-27] MEDS ORDERED: Carvedilol 3.125 MG TAB PO SCH (22:00)
[2023-04-27] MEDS: Apixaban 2.5 MG TAB PO SCH (22:01)
[2023-04-27] MEDS: Atorvastatin Calcium 40 MG TAB PO SCH (22:02)
[2023-04-27 22:31] LABS: Troponin I 0.213 ng/mL (< 0.028)
[2023-04-28] MEDS ORDERED: Nitroglycerin 2% Ointment 1 INCH/1 GM Packet TOP SCH (00:30)
[2023-04-28 03:15] LABS: #Basophils 0.1 10x3/uL (0.0-0.2); #Eosinphils 0.1 10x3/uL (0.0-0.5); #Monocytes 1.2 10x3/uL (0.0-1.1); #Neutrophils 6.1 10x3/uL (1.5-8.4); %Basophils 0.6 % (0.0-2.0); %Lymphocytes 14.6 % (18.0-47.0); %Monocytes 13.6 % (0.0-10.0); %Neutrophils 69.9 % (40.0-75.0); Hematocrit 24.7 % (38.8-50.0); Hemoglobin 8.3 g/dL (13.5-17.5); Mean Corpuscular HGB CONC 33.6 g/dL (32.0-36.0); Mean Corpuscular Hemoglobin 31.7 pg (27.0-33.0); Mean Corpuscular Volume 94.3 fl (81.2-95.1); Mean Platelet Volume 8.9 fl (7.4-10.4); Platelet Count 251 10x3/uL (150-450); RBC Distribution Width 15.8 % (11.5-14.5); Red Blood Cell (RBC) Count 2.62 10x6/uL (4.32-5.72); White Blood Cell (WBC) Count 8.8 10x3/uL (3.5-10.5)
[2023-04-28 03:25] LABS: Anion Gap 13 mmol/L (10-20); BUN (Urea Nitrogen) 32 mg/dL (8.4-25.7); Calc. Creatinine Clearance 11 mL/min (70-130); Calcium 9.1 mg/dL (7.8-10.44); Carbon Dioxide 32 mmol/L (23-31); Chloride 96 mmol/L (98-107); Estimated GFR 8; Glucose 164 mg/dL (83-110); Magnesium 2.2 mg/dL (1.6-2.6); Potassium 4.1 mmol/L (3.5-5.1); Sodium 137 mmol/L (136-145)
[2023-04-28] MEDS ORDERED: Carvedilol 25 MG TAB PO SCH (08:00)
[2023-04-28] MEDS ORDERED: Digoxin 0.5 MG/2 ML AMP SLOW IVP SCH (08:15)
[2023-04-28] MEDS: Clopidogrel Bisulfate 75 MG TAB PO SCH (08:28)
[2023-04-28] MEDS: Apixaban 2.5 MG TAB PO SCH (08:28)
[2023-04-28] MEDS: Carvedilol 25 MG TAB PO SCH (08:29)
[2023-04-28] MEDS: glipiZIDE 5 MG TAB PO SCH ×2 (08:29→16:02)
[2023-04-28] MEDS: Amiodarone 200 MG TAB PO SCH ×2 (08:39→21:35)
[2023-04-28] MEDS: Alogliptin 6.25 MG TAB PO SCH (08:39)
[2023-04-28] MEDS: Isosorbide Mononitrate 30 MG ER.TAB PO SCH (08:40)
[2023-04-28] MEDS: Montelukast Sodium 10 mg Tablet PO SCH (08:40)
[2023-04-28] MEDS ORDERED: Ranolazine 500 MG ER.TAB PO SCH (09:00)
[2023-04-28] MEDS ORDERED: Aspirin 81 mg Enteric Coated Tablet PO SCH (09:00)
[2023-04-28] MEDS ORDERED: dilTIAZem CD 120 MG CAP PO SCH (09:00)
[2023-04-28] MEDS ORDERED: Ondansetron PF 4 MG/2 ML Vial IVP PRN (09:23)
[2023-04-28 09:29] LABS: Critical Call Chem Troponin I ICU.SP @ 09:28; Troponin I 5.253 ng/mL (< 0.028)
[2023-04-28] MEDS: Allopurinol 300 MG TAB PO SCH (09:39)
[2023-04-28] MEDS ORDERED: Metoprolol Tartrate 5 MG (5 mL) VIAL IVP SCH (09:45)
[2023-04-28] MEDS ORDERED: Nitroglycerin 50 MG/250 ML BOT 0 ML ONE (09:55)
[2023-04-28] MEDS ORDERED: Lidocaine 1% (PF) 30 ML VIAL ONE (09:55)
[2023-04-28] MEDS ORDERED: Adenosine 6 mg (2 mL) VIAL ONE (09:56)
[2023-04-28] MEDS ORDERED: Heparin 10,000 UNITS/ 10 ML VIAL ONE (09:56)
[2023-04-28] MEDS: Lanthanum Carbonate 500 mg Chewable Tablet PO SCH ×3 (10:01→16:38)
[2023-04-28] MEDS ORDERED: Atropine Sulfate 1 mg/1 ml Vial ONE (10:04)
[2023-04-28] MEDS: Heparin 10,000 UNITS/ 10 ML VIAL SLOW IVP SCH (11:00)
[2023-04-28] MEDS: Heparin 25,000 units/D5W 500 ML IVPB SCH (11:04)
[2023-04-28 11:24] LABS: Hematocrit 24.4 % (38.8-50.0); Hemoglobin 8.2 g/dL (13.5-17.5); Platelet Count 240 10x3/uL (150-450)
[2023-04-28] MEDS ORDERED: Metoprolol Tartrate 5 MG (5 mL) VIAL IVP PRN (12:56)
[2023-04-28 17:54] LABS: PTT Greater than 139.0 sec (22.0-33.0)
[2023-04-28] MEDS: Atorvastatin Calcium 40 MG TAB PO SCH (21:34)
[2023-04-29] MEDS: Heparin 10,000 UNITS/ 10 ML VIAL SLOW IVP SCH (05:21)
[2023-04-29] MEDS: Isosorbide Mononitrate 30 MG ER.TAB PO SCH (08:15)
[2023-04-29] MEDS: Clopidogrel Bisulfate 75 MG TAB PO SCH (08:15)
[2023-04-29] MEDS: Montelukast Sodium 10 mg Tablet PO SCH (08:15)
[2023-04-29] MEDS: Amiodarone 200 MG TAB PO SCH ×2 (08:16→20:07)
[2023-04-29] MEDS: Alogliptin 6.25 MG TAB PO SCH (08:16)
[2023-04-29] MEDS: glipiZIDE 5 MG TAB PO SCH ×2 (08:16→16:54)
[2023-04-29] MEDS: Carvedilol 25 MG TAB PO SCH ×2 (08:16→16:54)
[2023-04-29] MEDS: Lanthanum Carbonate 500 mg Chewable Tablet PO SCH ×3 (08:52→16:54)
[2023-04-29] MEDS: Allopurinol 300 MG TAB PO SCH (08:54)
[2023-04-29] MEDS: Heparin 25,000 units/D5W 500 ML IVPB SCH (18:09)
[2023-04-29] MEDS: Atorvastatin Calcium 40 MG TAB PO SCH (20:07)
[2023-04-30] MEDS: Heparin 10,000 UNITS/ 10 ML VIAL SLOW IVP SCH (04:27)
[2023-04-30] MEDS: Isosorbide Mononitrate 30 MG ER.TAB PO SCH (08:54)
[2023-04-30] MEDS: Lanthanum Carbonate 500 mg Chewable Tablet PO SCH ×3 (08:54→17:26)
[2023-04-30] MEDS: Alogliptin 6.25 MG TAB PO SCH (08:55)
[2023-04-30] MEDS: glipiZIDE 5 MG TAB PO SCH ×2 (08:55→17:24)
[2023-04-30] MEDS: Amiodarone 200 MG TAB PO SCH ×2 (08:55→20:48)
[2023-04-30] MEDS: Clopidogrel Bisulfate 75 MG TAB PO SCH (08:56)
[2023-04-30] MEDS: Montelukast Sodium 10 mg Tablet PO SCH (08:56)
[2023-04-30] MEDS: Carvedilol 25 MG TAB PO SCH ×2 (08:56→17:24)
[2023-04-30] MEDS: Allopurinol 300 MG TAB PO SCH (08:57)
[2023-04-30 11:37] LABS: Hematocrit 20.3 % (38.8-50.0); Hemoglobin 6.7 g/dL (13.5-17.5); Platelet Count 247 10x3/uL (150-450)
[2023-04-30] MEDS ORDERED: Dextrose 50% Abboject 50 ML SYRINGE SLOW IVP PRN (11:49)
[2023-04-30] MEDS ORDERED: Dextrose 5% in Water 1,000 ML IV PRN (11:49)
[2023-04-30] MEDS ORDERED: Glucagon 1 MG/ML KIT IM PRN (11:49)
[2023-04-30] MEDS: HumaLOG 300 UNITS/3 ML VIAL SC PRN (12:15)
[2023-04-30 13:04] LABS: Hemoglobin 6.9 g/dL (13.5-17.5)
[2023-04-30] MEDS: Atorvastatin Calcium 40 MG TAB PO SCH (20:48)
[2023-04-30 23:54] LABS: Hematocrit 25.3 % (38.8-50.0); Hemoglobin 8.5 g/dL (13.5-17.5)
[2023-05-01 00:03] LABS: Potassium 4.9 mmol/L (3.5-5.1)
[2023-05-01 04:10] LABS: #Basophils 0.1 10x3/uL (0.0-0.2); #Eosinphils 0.1 10x3/uL (0.0-0.5); #Monocytes 1.6 10x3/uL (0.0-1.1); #Neutrophils 8.1 10x3/uL (1.5-8.4); %Basophils 0.7 % (0.0-2.0); %Eosinophils 0.5 % (0.0-6.0); %Lymphocytes 10.4 % (18.0-47.0); %Monocytes 14.6 % (0.0-10.0); %Neutrophils 73.3 % (40.0-75.0); Hematocrit 27.3 % (38.8-50.0); Hemoglobin 9.3 g/dL (13.5-17.5); Mean Corpuscular HGB CONC 34.1 g/dL (32.0-36.0); Mean Corpuscular Hemoglobin 31.5 pg (27.0-33.0); Mean Corpuscular Volume 92.5 fl (81.2-95.1); Mean Platelet Volume 9.1 fl (7.4-10.4); Platelet Count 260 10x3/uL (150-450); RBC Distribution Width 17.8 % (11.5-14.5); Red Blood Cell (RBC) Count 2.95 10x6/uL (4.32-5.72)
[2023-05-01 04:21] LABS: ALT (SGPT) 23 U/L (8-55); AST (SGOT) 64 U/L (5-34); Alkaline Phosphatase 112 U/L (40-110); Anion Gap 18 mmol/L (10-20); BUN (Urea Nitrogen) 45 mg/dL (8.4-25.7); Bilirubin, Total 1.2 mg/dL (0.2-1.2); Calc. Creatinine Clearance 9 mL/min (70-130); Calcium 9.7 mg/dL (7.8-10.44); Carbon Dioxide 27 mmol/L (23-31); Chloride 95 mmol/L (98-107); Estimated GFR 6; Globulin 2.8 g/dL (2.4-3.5); Glucose 185 mg/dL (83-110); Potassium 4.6 mmol/L (3.5-5.1); Protein, Total 6.8 g/dL (5.8-8.1); Sodium 135 mmol/L (136-145)
[2023-05-01] MEDS: Allopurinol 300 MG TAB PO SCH (05:13)
[2023-05-01] MEDS: Montelukast Sodium 10 mg Tablet PO SCH (05:14)
[2023-05-01] MEDS: Isosorbide Mononitrate 30 MG ER.TAB PO SCH (05:14)
[2023-05-01] MEDS: Amiodarone 200 MG TAB PO SCH ×2 (05:14→21:18)
[2023-05-01] MEDS: Carvedilol 25 MG TAB PO SCH ×3 (05:14→21:21)
[2023-05-01] MEDS ORDERED: Midazolam HCl 2 mg/2 ml Vial ONE (06:27)
[2023-05-01] MEDS ORDERED: Nitroglycerin 50 MG/250 ML BOT 0 ML ONE (06:27)
[2023-05-01] MEDS ORDERED: Heparin 10,000 UNITS/ 10 ML VIAL ONE (06:27)
[2023-05-01] MEDS ORDERED: fentaNYL 50 mcg/mL 1 mL Vial ONE (06:27)
[2023-05-01] MEDS ORDERED: Lidocaine 1% (PF) 30 ML VIAL ONE (06:27)
[2023-05-01] MEDS ORDERED: Nitroglycerin 0.4 MG TAB (25 Tab Bottle) SL PRN (07:53)
[2023-05-01] MEDS ORDERED: Sodium Chloride 0.9% 200 ML IV PRN (07:53)
[2023-05-01] MEDS ORDERED: Acetaminophen/Codeine 30-300mg Tablet PO PRN ×2 (07:53)
[2023-05-01] MEDS ORDERED: DOPamine 400 MG/D5W 250 ML 250 ML IVPB SCH (08:00)
[2023-05-01] MEDS ORDERED: Iopamidol 300 61% 100 ML VIAL FS ONE (08:13)
[2023-05-01] MEDS: glipiZIDE 5 MG TAB PO SCH ×2 (14:58→18:00)
[2023-05-01] MEDS: Lanthanum Carbonate 500 mg Chewable Tablet PO SCH ×2 (14:59→18:00)
[2023-05-01] MEDS: Alogliptin 6.25 MG TAB PO SCH (18:00)
[2023-05-01] MEDS: Aspirin 81 mg Enteric Coated Tablet PO SCH (18:00)
[2023-05-01] MEDS: Clopidogrel Bisulfate 75 MG TAB PO SCH (18:00)
[2023-05-01] MEDS: Atorvastatin Calcium 40 MG TAB PO SCH (21:19)
[2023-05-01] MEDS: HumaLOG 300 UNITS/3 ML VIAL SC PRN (21:21)
[2023-05-02 04:56] LABS: #Monocytes 1.2 10x3/uL (0.0-1.1); #Neutrophils 8.9 10x3/uL (1.5-8.4); %Basophils 0.2 % (0.0-2.0); %Lymphocytes 8.3 % (18.0-47.0); %Monocytes 11.2 % (0.0-10.0); %Neutrophils 79.9 % (40.0-75.0); Hematocrit 24.5 % (38.8-50.0); Hemoglobin 8.3 g/dL (13.5-17.5); Mean Corpuscular HGB CONC 33.9 g/dL (32.0-36.0); Mean Corpuscular Hemoglobin 31.8 pg (27.0-33.0); Mean Corpuscular Volume 93.9 fl (81.2-95.1); Mean Platelet Volume 9.7 fl (7.4-10.4); Platelet Count 228 10x3/uL (150-450); RBC Distribution Width 17.8 % (11.5-14.5); Red Blood Cell (RBC) Count 2.61 10x6/uL (4.32-5.72); White Blood Cell (WBC) Count 11.1 10x3/uL (3.5-10.5)
[2023-05-02 05:09] LABS: Anion Gap 18 mmol/L (10-20); BUN (Urea Nitrogen) 65 mg/dL (8.4-25.7); Calc. Creatinine Clearance 7 mL/min (70-130); Calcium 9.1 mg/dL (7.8-10.44); Carbon Dioxide 25 mmol/L (23-31); Chloride 95 mmol/L (98-107); Estimated GFR 5; Glucose 177 mg/dL (83-110); Magnesium 2.4 mg/dL (1.6-2.6); Potassium 5.3 mmol/L (3.5-5.1); Sodium 133 mmol/L (136-145)
[2023-05-02] MEDS: Carvedilol 25 MG TAB PO SCH (10:35)
[2023-05-02] MEDS: Amiodarone 200 MG TAB PO SCH ×2 (10:41→22:28)
[2023-05-02] MEDS: Allopurinol 300 MG TAB PO SCH (10:44)
[2023-05-02] MEDS: Aspirin 81 mg Enteric Coated Tablet PO SCH (10:44)
[2023-05-02] MEDS: Lanthanum Carbonate 500 mg Chewable Tablet PO SCH ×3 (10:45→17:55)
[2023-05-02] MEDS: Alogliptin 6.25 MG TAB PO SCH (10:45)
[2023-05-02] MEDS: Montelukast Sodium 10 mg Tablet PO SCH (10:45)
[2023-05-02] MEDS: Clopidogrel Bisulfate 75 MG TAB PO SCH (10:45)
[2023-05-02] MEDS: glipiZIDE 5 MG TAB PO SCH ×2 (10:54→17:54)
[2023-05-02] MEDS: HumaLOG 300 UNITS/3 ML VIAL SC PRN (10:54)
[2023-05-02] MEDS ORDERED: Epoetin (ESRD) 10,000 UNITS/ML VIAL IVP PRN (12:00)
[2023-05-02] MEDS: Carvedilol 3.125 MG TAB PO SCH (17:55)
[2023-05-02] MEDS: Atorvastatin Calcium 40 MG TAB PO SCH (22:27)
[2023-05-03 05:20] LABS: #Eosinphils 0.1 10x3/uL (0.0-0.5); #Monocytes 1.4 10x3/uL (0.0-1.1); #Neutrophils 8.3 10x3/uL (1.5-8.4); %Basophils 0.3 % (0.0-2.0); %Eosinophils 0.9 % (0.0-6.0); %Neutrophils 76.3 % (40.0-75.0); Hematocrit 25.1 % (38.8-50.0); Hemoglobin 8.4 g/dL (13.5-17.5); Mean Corpuscular HGB CONC 33.5 g/dL (32.0-36.0); Mean Corpuscular Hemoglobin 31.2 pg (27.0-33.0); Mean Corpuscular Volume 93.3 fl (81.2-95.1); Mean Platelet Volume 9.1 fl (7.4-10.4); Platelet Count 234 10x3/uL (150-450); RBC Distribution Width 17.4 % (11.5-14.5); Red Blood Cell (RBC) Count 2.69 10x6/uL (4.32-5.72); White Blood Cell (WBC) Count 10.9 10x3/uL (3.5-10.5)
[2023-05-03 05:42] LABS: Anion Gap 16 mmol/L (10-20); BUN (Urea Nitrogen) 38 mg/dL (8.4-25.7); Calc. Creatinine Clearance 10 mL/min (70-130); Calcium 8.8 mg/dL (7.8-10.44); Carbon Dioxide 31 mmol/L (23-31); Chloride 95 mmol/L (98-107); Estimated GFR 7; Glucose 127 mg/dL (83-110); Potassium 4.7 mmol/L (3.5-5.1); Sodium 137 mmol/L (136-145)
[2023-05-03] MEDS: Montelukast Sodium 10 mg Tablet PO SCH (09:30)
[2023-05-03] MEDS: Allopurinol 300 MG TAB PO SCH (09:30)
[2023-05-03] MEDS: glipiZIDE 5 MG TAB PO SCH ×2 (09:30→16:39)
[2023-05-03] MEDS: Amiodarone 200 MG TAB PO SCH ×2 (09:30→21:19)
[2023-05-03] MEDS: Lanthanum Carbonate 500 mg Chewable Tablet PO SCH ×3 (09:30→16:39)
[2023-05-03] MEDS: Clopidogrel Bisulfate 75 MG TAB PO SCH (09:30)
[2023-05-03] MEDS: Carvedilol 3.125 MG TAB PO SCH ×2 (09:31→16:39)
[2023-05-03] MEDS: Alogliptin 6.25 MG TAB PO SCH (09:31)
[2023-05-03] MEDS: Empagliflozin 10 MG TAB PO SCH (09:31)
[2023-05-03] MEDS: Aspirin 81 mg Enteric Coated Tablet PO SCH (09:55)
[2023-05-03] MEDS: Atorvastatin Calcium 40 MG TAB PO SCH (21:19)
[2023-05-03] MEDS: Mirtazapine 15 MG TAB PO SCH (21:19)
[2023-05-03] MEDS: HumaLOG 300 UNITS/3 ML VIAL SC PRN (21:27)
[2023-05-04] MEDS ORDERED: ALPRAZolam 0.25 MG TAB PO PRN (08:51)
[2023-05-04] MEDS: Montelukast Sodium 10 mg Tablet PO SCH (08:56)
[2023-05-04] MEDS: Clopidogrel Bisulfate 75 MG TAB PO SCH (08:56)
[2023-05-04] MEDS: Carvedilol 3.125 MG TAB PO SCH ×2 (08:56→18:01)
[2023-05-04] MEDS: Aspirin 81 mg Enteric Coated Tablet PO SCH (08:56)
[2023-05-04] MEDS: Alogliptin 6.25 MG TAB PO SCH (08:56)
[2023-05-04] MEDS: glipiZIDE 5 MG TAB PO SCH ×2 (08:56→18:01)
[2023-05-04] MEDS: Allopurinol 300 MG TAB PO SCH (08:56)
[2023-05-04] MEDS: Amiodarone 200 MG TAB PO SCH ×2 (08:56→20:34)
[2023-05-04] MEDS: Empagliflozin 10 MG TAB PO SCH (08:57)
[2023-05-04] MEDS: Lanthanum Carbonate 500 mg Chewable Tablet PO SCH ×3 (08:57→18:01)
[2023-05-04] MEDS: Mirtazapine 15 MG TAB PO SCH (20:34)
[2023-05-04] MEDS: Atorvastatin Calcium 40 MG TAB PO SCH (20:34)
[2023-05-04] MEDS: HumaLOG 300 UNITS/3 ML VIAL SC PRN (22:06)
[2023-05-05 08:47] VITALS: BP 115/67; TEMP 98.3
[2023-05-05] MEDS: Carvedilol 3.125 MG TAB PO SCH (08:59)
[2023-05-05] MEDS: Alogliptin 6.25 MG TAB PO SCH (08:59)
[2023-05-05] MEDS: Clopidogrel Bisulfate 75 MG TAB PO SCH (08:59)
[2023-05-05] MEDS: Amiodarone 200 MG TAB PO SCH (09:00)
[2023-05-05] MEDS: glipiZIDE 5 MG TAB PO SCH (09:00)
[2023-05-05] MEDS: Allopurinol 300 MG TAB PO SCH (09:00)
[2023-05-05] MEDS: Montelukast Sodium 10 mg Tablet PO SCH (09:00)
[2023-05-05] MEDS: Lanthanum Carbonate 500 mg Chewable Tablet PO SCH (09:00)
[2023-05-05] MEDS: Aspirin 81 mg Enteric Coated Tablet PO SCH (09:00)
[2023-05-05] MEDS: Empagliflozin 10 MG TAB PO SCH (09:00)
== END 2023-05-05 11:15 | disposition home health service (06) | DRG 321 ==
LOC: CSHERS 12:52 → CSHERHOLD 14:56 → CSHICU 16:23 → OBSVTOIN 04-28 10:00 → CSHTELE 04-30 05:33
PROVIDERS: ADMIT Internal Medicine; ATTEND Internal Medicine
PROC: 5A09357 Assistance with Respiratory Ventilation, Less than 24 Consecutive Hours, Continuous Positive Airway Pressure (ICD-10-PCS; 2023-04-29)
PROC: 5A1D70Z Performance of Urinary Filtration, Intermittent, Less than 6 Hours Per Day (ICD-10-PCS; 2023-04-29)
PROC: 30233N1 Transfusion of Nonautologous Red Blood Cells into Peripheral Vein, Percutaneous Approach (ICD-10-PCS; 2023-04-30)
PROC: 4A023N7 Measurement of Cardiac Sampling and Pressure, Left Heart, Percutaneous Approach (ICD-10-PCS; principal; 2023-05-01)
PROC: 027134Z Dilation of Coronary Artery, Two Arteries with Drug-eluting Intraluminal Device, Percutaneous Approach (ICD-10-PCS; 2023-05-01)
PROC: B2151ZZ Fluoroscopy of Left Heart using Low Osmolar Contrast (ICD-10-PCS; 2023-05-01)
PROC: B2111ZZ Fluoroscopy of Multiple Coronary Arteries using Low Osmolar Contrast (ICD-10-PCS; 2023-05-01)
DX: I48.0 Paroxysmal atrial fibrillation (principal); I21.4 Non-ST elevation (NSTEMI) myocardial infarction; N18.6 End stage renal disease; T82.855A Stenosis of coronary artery stent, initial encounter; I13.2 Hypertensive heart and chronic kidney disease with heart failure and with stage 5 chronic kidney disease, or end stage renal disease; I50.32 Chronic diastolic (congestive) heart failure; I25.10 Atherosclerotic heart disease of native coronary artery without angina pectoris; E78.5 Hyperlipidemia, unspecified; E11.22 Type 2 diabetes mellitus with diabetic chronic kidney disease; M10.9 Gout, unspecified; Z79.899 Other long term (current) drug therapy; D63.1 Anemia in chronic kidney disease; Z82.49 Family history of ischemic heart disease and other diseases of the circulatory system; Z79.82 Long term (current) use of aspirin; Z88.8 Allergy status to other drugs, medicaments and biological substances; I25.5 Ischemic cardiomyopathy; E87.5 Hyperkalemia; K59.00 Constipation, unspecified; I95.9 Hypotension, unspecified; Z99.2 Dependence on renal dialysis
CPT/HCPCS: 36415; 36416; 36430; 71045; 80048; 80053; 83036; 83735; 83880; 84132; 84443; 84484; 85014; 85018; 85025; 85049; 85347; 85730; 86850; 86900; 86901; 90935; 92928; 93005; 93010; 93459; 94760; 96374; 99152; 99153; C1769; C1874; C1887; C1894; C9600; G0257; J0153; J0282; J0283; J0461; J1644; J1815; J2001; J2250; J2405; J3010; P9016; Q9967

== ENCOUNTER 2023-05-26 15:04 | Emergency (ER) | payer OTHER ==
[2023-05-26 16:32] LABS: #Basophils 0.1 10x3/uL (0.0-0.2); #Eosinphils 0.2 10x3/uL (0.0-0.5); #Monocytes 0.7 10x3/uL (0.0-1.1); #Neutrophils 3.6 10x3/uL (1.5-8.4); %Basophils 0.9 % (0.0-2.0); %Eosinophils 3.4 % (0.0-6.0); %Lymphocytes 18.4 % (18.0-47.0); %Monocytes 12.8 % (0.0-10.0); %Neutrophils 64.3 % (40.0-75.0); Hematocrit 23.5 % (38.8-50.0); Hemoglobin 7.8 g/dL (13.5-17.5); Mean Corpuscular HGB CONC 33.2 g/dL (32.0-36.0); Mean Corpuscular Hemoglobin 32.4 pg (27.0-33.0); Mean Corpuscular Volume 97.5 fl (81.2-95.1); Mean Platelet Volume 8.8 fl (7.4-10.4); Platelet Count 226 10x3/uL (150-450); RBC Distribution Width 16.3 % (11.5-14.5); Red Blood Cell (RBC) Count 2.41 10x6/uL (4.32-5.72); White Blood Cell (WBC) Count 5.6 10x3/uL (3.5-10.5)
[2023-05-26 16:47] LABS: ALT (SGPT) 13 U/L (8-55); AST (SGOT) 20 U/L (5-34); Alkaline Phosphatase 120 U/L (40-110); Anion Gap 17 mmol/L (10-20); BUN (Urea Nitrogen) 27 mg/dL (8.4-25.7); Bilirubin, Total 0.3 mg/dL (0.2-1.2); Calc. Creatinine Clearance 0 mL/min (70-130); Calcium 8.7 mg/dL (7.8-10.44); Carbon Dioxide 27 mmol/L (23-31); Chloride 98 mmol/L (98-107); Estimated GFR 7; Globulin 2.5 g/dL (2.4-3.5); Glucose 207 mg/dL (83-110); Potassium 3.5 mmol/L (3.5-5.1); Protein, Total 6.5 g/dL (5.8-8.1); Sodium 138 mmol/L (136-145)
== END 2023-05-26 17:28 | disposition home or self-care (01) ==
LOC: CSHERS 15:04
DX: R79.9 Abnormal finding of blood chemistry, unspecified (principal); E11.22 Type 2 diabetes mellitus with diabetic chronic kidney disease; N18.6 End stage renal disease; I13.2 Hypertensive heart and chronic kidney disease with heart failure and with stage 5 chronic kidney disease, or end stage renal disease; I50.9 Heart failure, unspecified; Z99.2 Dependence on renal dialysis
CPT/HCPCS: 36415; 80053; 85025; 86850; 86900; 86901; 99284

== ENCOUNTER 2023-10-18 17:04 | Emergency (ER) | payer MEDICARE, OTHER ==
[2023-10-18 18:03] LABS: #Basophils 0.04 10x3/uL (0.0-0.2); #Monocytes 0.81 10x3/uL (0.0-1.1); #Neutrophils 4.67 10x3/uL (1.5-8.4); %Basophils 0.6 % (0.0-2.0); %Eosinophils 1.6 % (0.0-6.0); %Lymphocytes 10.9 % (18.0-47.0); %Monocytes 12.8 % (0.0-10.0); %Neutrophils 73.8 % (40.0-75.0); Hematocrit 18.5 % (38.8-50.0); Hemoglobin 6.4 g/dL (13.5-17.5); Mean Corpuscular HGB CONC 34.6 g/dL (32.0-36.0); Mean Corpuscular Volume 95.4 fL (81.2-95.1); Mean Platelet Volume 8.9 fL (7.4-10.4); Platelet Count 215 10x3/uL (150-450); RBC Distribution Width 14.3 % (11.5-14.5); Red Blood Cell (RBC) Count 1.94 10x6/uL (4.32-5.72); White Blood Cell (WBC) Count 6.3 10x3/uL (3.5-10.5)
[2023-10-18 18:12] LABS: ALT (SGPT) 15 U/L (8-55); AST (SGOT) 21 U/L (5-34); Albumin 3.4 g/dL (3.4-4.8); Alkaline Phosphatase 80 U/L (40-110); Anion Gap 15 mmol/L (10-20); BUN (Urea Nitrogen) 30 mg/dL (8.4-25.7); Bilirubin, Total 0.3 mg/dL (0.2-1.2); Calc. Creatinine Clearance 0 mL/min (70-130); Calcium 9.1 mg/dL (7.8-10.44); Carbon Dioxide 27 mmol/L (23-31); Chloride 97 mmol/L (98-107); Estimated GFR 7; Globulin 2.8 g/dL (2.4-3.5); Glucose 171 mg/dL (83-110); Potassium 4.2 mmol/L (3.5-5.1); Protein, Total 6.2 g/dL (5.8-8.1); Sodium 135 mmol/L (136-145)
[2023-10-18 18:48] LABS: Lipase 30 U/L (8-78)
[2023-10-18 18:51] LABS: Troponin I 0.051 ng/mL (< 0.028)
== END 2023-10-18 21:51 | disposition home or self-care (01) ==
LOC: CSHERS 17:04
DX: D63.1 Anemia in chronic kidney disease (principal); I13.2 Hypertensive heart and chronic kidney disease with heart failure and with stage 5 chronic kidney disease, or end stage renal disease; E11.22 Type 2 diabetes mellitus with diabetic chronic kidney disease; N18.6 End stage renal disease; I50.9 Heart failure, unspecified; Z99.2 Dependence on renal dialysis; Z79.84 Long term (current) use of oral hypoglycemic drugs; Z79.82 Long term (current) use of aspirin
CPT/HCPCS: 36430; 71045; 80053; 83605; 83690; 83735; 83880; 84484; 85025; 86850; 86900; 86901; 86920; 87040; 93005; P9016; 36415

== ENCOUNTER 2023-10-19 12:03 | Emergency (ER) | payer OTHER ==
[2023-10-19 13:16] LABS: #Basophils 0.05 10x3/uL (0.0-0.2); #Eosinphils 0.15 10x3/uL (0.0-0.5); #Monocytes 0.76 10x3/uL (0.0-1.1); #Neutrophils 5.77 10x3/uL (1.5-8.4); %Basophils 0.7 % (0.0-2.0); %Monocytes 10.2 % (0.0-10.0); %Neutrophils 77.7 % (40.0-75.0); Hematocrit 25.6 % (38.8-50.0); Hemoglobin 8.9 g/dL (13.5-17.5); Mean Corpuscular HGB CONC 34.8 g/dL (32.0-36.0); Mean Corpuscular Hemoglobin 31.8 pg (27.0-33.0); Mean Corpuscular Volume 91.4 fL (81.2-95.1); Mean Platelet Volume 8.7 fL (7.4-10.4); Platelet Count 238 10x3/uL (150-450); RBC Distribution Width 17.2 % (11.5-14.5); White Blood Cell (WBC) Count 7.4 10x3/uL (3.5-10.5)
[2023-10-19 13:24] LABS: Prothrombin Time 10.7 sec (9.5-12.1)
[2023-10-19 13:28] LABS: ALT (SGPT) 15 U/L (8-55); AST (SGOT) 21 U/L (5-34); Albumin 3.7 g/dL (3.4-4.8); Alkaline Phosphatase 86 U/L (40-110); Anion Gap 15 mmol/L (10-20); BUN (Urea Nitrogen) 15 mg/dL (8.4-25.7); Bilirubin, Total 0.5 mg/dL (0.2-1.2); Calc. Creatinine Clearance 0 mL/min (70-130); Calcium 9.4 mg/dL (7.8-10.44); Carbon Dioxide 26 mmol/L (23-31); Chloride 97 mmol/L (98-107); Estimated GFR 13; Globulin 3.4 g/dL (2.4-3.5); Glucose 162 mg/dL (83-110); Potassium 3.4 mmol/L (3.5-5.1); Protein, Total 7.1 g/dL (5.8-8.1); Sodium 135 mmol/L (136-145)
== END 2023-10-19 14:03 | disposition home or self-care (01) ==
LOC: CSHERS 12:03
DX: D63.1 Anemia in chronic kidney disease (principal); I13.2 Hypertensive heart and chronic kidney disease with heart failure and with stage 5 chronic kidney disease, or end stage renal disease; E11.22 Type 2 diabetes mellitus with diabetic chronic kidney disease; N18.6 End stage renal disease; I50.9 Heart failure, unspecified; Z99.2 Dependence on renal dialysis; Z55.6 Problems related to health literacy
CPT/HCPCS: 80053; 82274; 85025; 85610; 99283

== ENCOUNTER 2024-05-03 15:08 | Emergency (ER) | payer OTHER, MEDICARE ==
[2024-05-03 16:28] LABS: #Basophils 0.05 10x3/uL (0.0-0.2); #Monocytes 0.54 10x3/uL (0.0-1.1); #Neutrophils 2.76 10x3/uL (1.5-8.4); %Basophils 1.2 % (0.0-2.0); %Eosinophils 2.3 % (0.0-6.0); %Lymphocytes 18.7 % (18.0-47.0); %Monocytes 12.6 % (0.0-10.0); %Neutrophils 64.7 % (40.0-75.0); Hematocrit 42.6 % (38.8-50.0); Hemoglobin 13.8 g/dL (13.5-17.5); Mean Corpuscular HGB CONC 32.4 g/dL (32.0-36.0); Mean Corpuscular Hemoglobin 30.9 pg (27.0-33.0); Mean Corpuscular Volume 95.3 fL (81.2-95.1); Mean Platelet Volume 8.6 fL (7.4-10.4); Platelet Count 218 10x3/uL (150-450); RBC Distribution Width 16.4 % (11.5-14.5); Red Blood Cell (RBC) Count 4.47 10x6/uL (4.32-5.72); White Blood Cell (WBC) Count 4.27 10x3/uL (3.5-10.5)
[2024-05-03 16:47] LABS: ALT (SGPT) 10 U/L (Less than 45); AST (SGOT) 20 U/L (11-34); Albumin 3.7 g/dL (3.1-4.5); Alkaline Phosphatase 50 U/L (40-110); Anion Gap 21 mmol/L (10-20); BUN (Urea Nitrogen) 43 mg/dL (8.4-25.7); Bilirubin, Total 0.4 mg/dL (0.3-1.2); Calc. Creatinine Clearance 0 mL/min (70-130); Calcium 9.2 mg/dL (7.8-10.44); Carbon Dioxide 21 mmol/L (23-31); Chloride 99 mmol/L (98-107); Estimated GFR 5; Globulin 3.3 g/dL (2.4-3.5); Glucose 96 mg/dL (83-110); Potassium 5.4 mmol/L (3.5-5.1); Sodium 136 mmol/L (136-145)
== END 2024-05-03 17:15 | disposition home or self-care (01) ==
LOC: CSHERS 15:08
DX: I13.2 Hypertensive heart and chronic kidney disease with heart failure and with stage 5 chronic kidney disease, or end stage renal disease (principal); E11.22 Type 2 diabetes mellitus with diabetic chronic kidney disease; N18.6 End stage renal disease; I50.9 Heart failure, unspecified; Z99.2 Dependence on renal dialysis; W08.XXXA Fall from other furniture, initial encounter
CPT/HCPCS: 36415; 71045; 80053; 85025; 87428; 93005